=== PATIENT | female | born 1970 | race Caucasian/White ===

== ENCOUNTER → 2016-05-06 | Outpatient (CLI) | payer OTHER ==
[~2016-05-06] MED LIST: DEXAMETHASONE 4 MG/ML VIAL ONE; LIDOCAINE 2% 5 ML SDV ONE; PROPOFOL 200 MG/20 ML VIAL ONE; fentaNYL 100 MCG/2 ML INJ ONE
== END ==
LOC: FIMAGING 14:05
DX: Z12.31 Encounter for screening mammogram for malignant neoplasm of breast (principal)
CPT/HCPCS: G0202; J1100; J2704; J3010

== ENCOUNTER 2017-04-23 01:38 | Emergency (ER) | payer OTHER ==
[2017-04-23 01:41] VITALS: RESP 16
--- NOTE | 2017-04-23 03:14 | EDPHY ---
H & P Stated Complaint: Low blood glucose Time Seen by Provider: 04/23/17 02:40 HPI/ROS: HPI The patient presents with hypoglycemia just prior to arrival. She is staying with her daughter who was admitted to the hospital and said she had an been monitoring her dietary intake closely. She is a type 1 diabetic and has been wearing an insulin pump for several years. She was found at her daughter's bedside very diaphoretic and minimally responsive. Blood glucose was unobtainable. She received an amp of D50 with improvement in her mental status in a glucose of about 200. She denies any chest pain, shortness of breath, coughing, nausea, vomiting. She has been able to eat since she arrived in the emergency department. REVIEW OF SYSTEMS Constitutional: No fever, no chills. Eyes: No discharge. ENT: No sore throat. Cardiovascular: No chest pain, no palpitations. Respiratory: No cough, no shortness of breath. Gastrointestinal: No abdominal pain, no vomiting. Genitourinary: No hematuria. Musculoskeletal: No back pain. Skin: No rashes. Neurological: No headache. PMHx: Type 1 diabetes, insulin pump Soc Hx: Daughter is admitted to the hospital currently PHYSICAL General Appearance: Alert, no distress Eyes: Pupils equal and round no pallor or injection ENT, Mouth: Mucous membranes moist Respiratory: There are no retractions, lungs are clear to auscultation Cardiovascular: Regular rate and rhythm Gastrointestinal: Abdomen is soft and non-tender, no masses, bowel sounds normal Neurological: A&O, moves all extremities Skin: Warm and dry, no rashes Musculoskeletal: Neck is supple non tender Extremities: symmetrical, full range of motion Psychiatric: Patient is oriented X 3, there is no agitation Source: Patient Exam Limitations: No limitations - Personal History LMP (Females 10-55): 8-14 Days Ago Current Tetanus/Diphtheria Vaccine: Yes Current Tetanus Diphtheria and Acellular Pertussis (TDAP): Yes - Medical/Surgical History Hx Asthma: No Hx Chronic Respiratory Disease: No Hx Diabetes: Yes Hx Cardiac Disease: No Hx Renal Disease: No Hx Cirrhosis: No Hx Alcoholism: No Hx HIV/AIDS: No Hx Splenectomy or Spleen Trauma: No Constitutional: Initial Vital Signs Temperature (C) 36.6 C 04/23/17 01:39 Heart Rate 67 04/23/17 01:39 Respiratory Rate 16 04/23/17 01:39 Blood Pressure 115/84 H 04/23/17 01:39 O2 Sat (%) 99 04/23/17 01:39 O2 Delivery Mode Room Air Allergies/Adverse Reactions: No Known Allergies Allergy (Unverified 04/23/17 01:39) Home Medications: Medication Instructions Recorded Insulin Pump 04/19/13 Medical Decision Making Differential Diagnosis: 47-year-old female with diabetes on insulin pump presents with hypoglycemia, now improved after receiving supplemental glucose. She has not been eating much today and has been aiding in the care of her daughter who was admitted to the hospital. She has history of hypoglycemia on the insulin pump. She does not have continuous glucose monitoring. We monitored her here for several hours. Her glucose levels were normal and slightly elevated. We removed her insulin pump. Creatinine was checked and was unremarkable. She will be discharged home. I doubt any underlying serious infection, [place] given lack of symptoms. Departure - Departure Disposition: Home, Routine, Self-Care Clinical Impression: Hypoglycemia Condition: Good Instructions: Hypoglycemia in a Person with Diabetes (ED) Additional Instructions: Please make sure to watch her dietary intake. You should return to the emergency department if your worse in any way. Referrals: Barbara Schuster MD [Primary Care Provider] - As per Instructions
[2017-04-23 03:23] VITALS: BP 132/70; PULSE 77; TEMP 98.1; O2SAT 96
== END 2017-04-23 03:23 | disposition home or self-care (01) ==
DX: E10.649 Type 1 diabetes mellitus with hypoglycemia without coma (principal)